=== PATIENT | male | born 1985 | race Caucasian/White ===

== ENCOUNTER → 2018-04-16 | Outpatient (CLI) | payer OTHER ==
[~2018-04-16] MED LIST: KEFLEX
--- NOTE | 2018-04-16 20:42 | RADIOLOGY IMAGING REPORT ---
[place] [facility] [place] Nathanael Hutchison : 1985 MR: [id number] V: [id number] EXAM DATE: ORDERING PHYSICIAN: [facility] TECHNOLOGIST: Location: [facility] [place] Patient: Nathanael Hutchison : 1985 Visit/Account:[id number] Date of Sevice: 04/16/2018 FOOT 3 VIEW RIGHT HISTORY: Pain in right foot, surgery on right foot plan for 05/01/2018 ADDITIONAL HISTORY: None. COMPARISON: None. FINDINGS: 4 views were obtained of the right foot. AP weightbearing view includes the left foot. Joint spaces are well-maintained. There is flexion of the DIP joints of the second through fifth digi ts on all views. All of the other joint spaces are in anatomic alignment. There are no osteophytes or erosions. No lytic or sclerotic bony lesions. Tarsometatarsal joints and intertarsal joints are well -maintained. Subtalar joint is unremarkable. Calcaneus is intact. There is no evidence of acute or bautista bacute fracture. There is flexion at the DIP joints of the fourth and fifth digits. Joint spaces are otherwise in harjinder omic alignment and are of normal caliber. There are no osteophytes or erosions. No evidence of fractu re. IMPRESSION: 1. No evidence of acute osseous abnormality. 2. No significant degenerative changes. 3. Alignment and joint spaces described above. Report Dictated By: Africa Acosta MD at 04/16/2018 8:33 PM Report E-Signed By: Africa Acosta MD at 04/16/2018 8:38 PM WSN:[id number]
== END ==
LOC: RAD 16:56
PROVIDERS: ATTEND Orthopaedic Surgery
DX: M79.672 Pain in left foot (principal)